=== PATIENT | female | born 1970 | race Caucasian/White ===

== ENCOUNTER → 2025-01-09 12:07 | Outpatient (CLI) | payer BC, SELFPAY ==
--- NOTE | 2025-01-09 12:09 | DI.RAD.S_ITS ---
PROCEDURE: XR FOOT RT MIN 3V INDICATIONS: Right foot injury 4th to 5th metatarsal TECHNIQUE: 3 views of the foot were acquired. COMPARISON: None. FINDINGS: No acute fracture or dislocation. The Lisfranc interval is preserved on nonweightbearing view. Mild hyperostosis of the 2nd and 3rd metatarsal shafts, likely secondary to a chronic, healed stress fractures. Mild hallux valgus with lateralization of the hallux sesamoids. Small osseous erosions with soft tissue calcifications along the 1st medial metatarsal head IMPRESSION: 1. No acute fracture or dislocation. 2. Small osseous erosions and soft tissue calcifications along the 1st medial metatarsal head. Consider gout. Dictated by: Jw Cruz M.D. on 01/09/2025 at 16:19 Approved by: Jw Cruz M.D. on 01/09/2025 at 16:21
== END ==
PROVIDERS: Referring Provider Nurse Practitioner Family; Visit Provider Nurse Practitioner Family
DX: S99.921A Unspecified injury of right foot, initial encounter (principal); M20.11 Hallux valgus (acquired), right foot; X58.XXXA Exposure to other specified factors, initial encounter
CPT/HCPCS: 73630

== ENCOUNTER → 2025-08-03 15:32 | Outpatient (CLI) | payer BC, SELFPAY | PROVIDERS: Visit Provider Nurse Practitioner Family | DX: R30.0 Dysuria (principal); N89.8 Other specified noninflammatory disorders of vagina | CPT/HCPCS: 87086; 87210 ==